=== PATIENT | male | born 1955 | race Caucasian/White ===

== ENCOUNTER 2025-08-21 07:03 | Outpatient (CLI) | payer MEDICARE, OTHER ==
[2025-08-21 07:30] LABS: #Basophils 0.1 thou/uL (0.0-0.2); #Eosinophils 0.2 thou/uL (0.0-0.7); #Lymphocytes 3.0 thou/uL (1.20-3.40); #Monocytes 0.4 thou/uL (0.11-0.59); #Neutrophils 4.2 thou/uL (1.40-6.50); %Basophils 1.0 % (0.0-1.0); %Eosinophils 2.5 % (0.0-10.0); %Lymphocytes 38.1 % (21.0-51.0); %Monocytes 4.7 % (0.0-10.0); %Neutrophils 53.8 % (42.0-75.0); Hematocrit 37.3 % (42.0-52.0); Hemoglobin 12.1 g/dL (14.0-18.0); Mean Corpuscular Hemoglobin 32.7 pg (27.0-31.0); Mean Corpuscular Volume 100.6 fl (78.0-98.0); Platelet Count 270 10x3/uL (130-400); Red Blood Cell (RBC) Count 3.71 mill/uL (4.70-6.10); White Blood Cell (WBC) Count 7.9 10x3/uL (4.8-10.8)
[2025-08-21 07:43] LABS: Anion Gap 16 mmol/L (10-20); BUN (Urea Nitrogen) 30 mg/dL (8.4-25.7); Calc. Creatinine Clearance 0 mL/min (70-130); Carbon Dioxide 24 mmol/L (23-31); Chloride 99 mmol/L (98-107); Potassium 4.1 mmol/L (3.5-5.1); Sodium 135 mmol/L (136-145)
[2025-08-21 07:44] LABS: ALT (SGPT) 14 U/L (Less than 45); AST (SGOT) 23 U/L (11-34); Albumin 4.5 g/dL (3.1-4.5); Alkaline Phosphatase 27 U/L (40-110); Bilirubin, Total 0.4 mg/dL (0.3-1.2); Calcium 11.2 mg/dL (7.8-10.44); Cardiac Risk 3.8 (Less than 4.5); Cholesterol 199 mg/dl (< 200 Desired); Globulin 3.1 g/dL (2.4-3.5); Glucose 107 mg/dL (83-110); HDL Cholesterol 52 mg/dL (>60 Neg Risk); LDL Cholesterol, Calculated 121 mg/dL; Triglycerides 131 mg/dL (Less than 150)
== END 2025-08-21 07:04 | disposition home or self-care (01) ==
LOC: MADLAB 07:03
PROVIDERS: ATTEND Physician Assistant Medical
DX: I48.0 Paroxysmal atrial fibrillation (principal)
CPT/HCPCS: 80053; 80061; 85025